=== PATIENT | male | born 1970 | race American Indian/Alaskan Native ===

== ENCOUNTER 2020-04-21 23:04 | Emergency (ER) | payer SELFPAY ==
[2020-04-21 23:11] VITALS: BP 147/92
[2020-04-22] MEDS ORDERED: IBUPROFEN 800 MG TAB PO ONE (00:15)
[2020-04-22] MEDS ORDERED: LIDOCAINE (1%) 10 MG/1 ML VIAL 20 ML MDV INFILTRATI ONE (00:19)
--- NOTE | 2020-04-22 00:22 | Emergency Department Report ---
ED General Adult HPI - General Chief complaint: Wound/Laceration Stated complaint: SPIDER BITE LEFT KNEE Time Seen by Provider: 04/21/20 23:30 Source: patient Mode of arrival: Ambulatory Limitations: No Limitations - History of Present Illness Initial comments: 49-year-old -[place] male patient with history of hypertension presents with complaints of insect bite to the left thigh and knee x2 weeks. Patient reports the thigh lesion has improved and there is no longer any pain, however the lesion on his knee is worsening and pain and swelling. He rates his current pain as a 10/10 in severity and describes it as throbbing. He denies any nu mbness/tingling/weakness in his limb, decreased range of motion of his knee, or fever/chills/sweats. Patient reports he believes a spider bit him, however he did not actually see any insect at the site of the lesion - Related Data Previous Rx's Medication Instructions Recorded Last Taken Type Acetaminophen/Codeine [Tylenol 1 tab PO Q8H PRN #8 tab 04/22/20 Unknown Rx /Codeine # 3 tab] Clindamycin [Clindamycin CAP] 300 mg PO Q6H 10 Days #40 capsule 04/22/20 Unknown Rx Ibuprofen [Motrin 800 MG tab] 800 mg PO Q8HR PRN #21 tablet 04/22/20 Unknown Rx Allergies Allergy/AdvReac Type Severity Reaction Status Date / Time Penicillins Allergy Itching Verified 04/21/20 23:17 ED Review of Systems ROS: Stated complaint: SPIDER BITE LEFT KNEE Other details as noted in HPI Constitutional: denies: chills, diaphoresis, fever, malaise, weakness Respiratory: denies: cough, SOB with exertion Gastrointestinal: denies: abdominal pain, nausea, vomiting, diarrhea, constipation Musculoskeletal: arthralgia Skin: denies: rash Neurological: denies: headache, weakness, numbness, paresthesias, abnormal gait ED Past Medical Hx - Past Medical History Previous Medical History?: Yes Hx Hypertension: Yes - Surgical History Past Surgical History?: No - Social History Smoking Status: Current Every Day Smoker Substance Use Type: None - Medications Home Medications: Home Medications Medication Instructions Recorded Confirmed Last Taken Type Acetaminophen/Codeine [Tylenol 1 tab PO Q8H PRN #8 tab 04/22/20 Unknown Rx /Codeine # 3 tab] Clindamycin [Clindamycin CAP] 300 mg PO Q6H 10 Days #40 capsule 04/22/20 Unknown Rx Ibuprofen [Motrin 800 MG tab] 800 mg PO Q8HR PRN #21 tablet 04/22/20 Unknown Rx ED Physical Exam - General Limitations: No Limitations General appearance: alert, in no apparent distress - Head Head exam: Present: atraumatic, normocephalic - Eye Eye exam: Present: normal appearance. Absent: scleral icterus - Respiratory Respiratory exam: Present: normal lung sounds bilaterally. Absent: respiratory distress - Cardiovascular Cardiovascular Exam: Present: regular rate, normal rhythm. Absent: systolic murmur, diastolic murmur, rubs, gallop - Extremities Exam Extremities exam: Present: full ROM, other (There is a 3 cm round abscess noted to the medial left knee with central fluctuance and surrounding erythema; full range of motion of the knee noted; normal sensation and perfusion of the leg and foot). Absent: joint swelling - Back Exam Back exam: Absent: CVA tenderness (R), CVA tenderness (L) - Neurological Exam Neurological exam: Present: alert, oriented X3 - Psychiatric Psychiatric exam: Present: normal affect, normal mood - Skin Skin exam: Present: warm, dry, intact, erythema, other (Dry healing lesion noted to left thigh without surrounding erythema or tenderness to palpation). Absent: rash ED Course Vital Signs 04/21/20 23:09 Temperature 99.3 F Pulse Rate 96 H Respiratory 16 Rate Blood Pressure 147/92 O2 Sat by Pulse 97 Oximetry - I & D Knee Type of Procedure: Simple Site: Medial left knee Blade Size: 11 I & D Procedure: betadine prep, sterile drapes applied, sterile dressing applied Progress: Patient in exercise using 6 cc of lidocaine 1% without epi. 11 blade used to incise area. Forceps used to probe. Moderate purulent drainage obtained from wound. Sample was sent for culture. Minimal bleeding occurred. Sterile dressing placed. Patient tolerated procedure well without any immediate complications. He has normal range of motion of the knee and perfusion of the leg and foot post procedure ED Medical Decision Making - Lab Data Result diagrams: 04/22/20 00:43 Lab Results 04/22/20 04/22/20 Range/Units 00:43 00:43 WBC 7.9 (4.5-11.0) K/mm3 RBC 4.38 (3.65-5.03) M/mm3 Hgb 14.0 (11.8-15.2) gm/dl Hct 41.2 (35.5-45.6) % MCV 94 (84-94) fl MCH 32 (28-32) pg MCHC 34 (32-34) % RDW 12.5 L (13.2-15.2) % Plt Count 268 (140-440) K/mm3 Lymph % (Auto) 27.7 (13.4-35.0) % [place] % (Auto) 8.3 H (0.0-7.3) % Eos % (Auto) 1.5 (0.0-4.3) % Baso % (Auto) 0.4 (0.0-1.8) % Lymph # (Auto) 2.2 (1.2-5.4) K/mm3 [place] # (Auto) 0.7 (0.0-0.8) K/mm3 Eos # (Auto) 0.1 (0.0-0.4) K/mm3 Baso # (Auto) 0.0 (0.0-0.1) K/mm3 Seg Neutrophils % 62.1 (40.0-70.0) % Seg Neutrophils # 4.9 (1.8-7.7) K/mm3 Sodium 141 (137-145) mmol/L Potassium 4.5 (3.6-5.0) mmol/L Chloride 100.1 (98-107) mmol/L Carbon Dioxide 25 (22-30) mmol/L Anion Gap 20 mmol/L BUN 17 (9-20) mg/dL Creatinine 1.2 (0.8-1.3) mg/dL Estimated GFR > 60 ml/min BUN/Creatinine Ratio 14 % Glucose 104 H (75-100) mg/dL Calcium 9.4 (8.4-10.2) mg/dL - Medical Decision Making 49-year-old -[place] male patient with history of hypertension presents with complaints of insect bite to the left thigh and knee x2 weeks. Patient reports the thigh lesion has improved and there is no longer any pain, however the lesion on his knee is worsening and pain and swelling. He rates his current pain as a 10/10 in severity and describes it as throbbing. He denies any numbness/tingling/weakness in his limb, decreased range of motion of his knee, or fever/chills/sweats. Patient reports he believes a spider bit him, however he did not actually see any insect at the site of the lesion. X-ray is normal. Incision and drainage performed. Patient tolerated procedure well. Wound culture sent. CBC is normal. Patient is afebrile and non- tachycardic. He is stable for discharge home. Discussed wound care and strict return precautions in detail with patient who verbalizes understanding. Patient to return to ED in 2 days for a wound recheck. Critical care attestation.: If time is entered above; I have spent that time in minutes in the direct care of this critically ill patient, excluding procedure time. ED Disposition Clinical Impression: Abscess of left knee, Cellulitis of knee, left Disposition: [id number] TO HOME OR SELFCARE Is pt being admited?: No Condition: Stable Instructions: Abscess Incision and Drainage (ED) Additional Instructions: Return to the emergency department in 2 days for wound recheck Prescriptions: Clindamycin [Clindamycin CAP] 300 mg PO Q6H 10 Days #40 capsule Ibuprofen [Motrin 800 MG tab] 800 mg PO Q8HR PRN #21 tablet PRN Reason: Pain, Moderate (4-6) Acetaminophen/Codeine [Tylenol /Codeine # 3 tab] 1 tab PO Q8H PRN #8 tab PRN Reason: Pain , Severe (7-10) Referrals: TRISTON ZELAYA MD [Primary Care Provider] - 3-5 Days
--- NOTE | 2020-04-22 00:42 | XRay Report ---
LEFT KNEE 3 VIEW INDICATION / CLINICAL INFORMATION: abscess over joint. COMPARISON: None available. FINDINGS: BONES/JOINT(S): No acute fracture or subluxation. No significant degenerative changes. SOFT TISSUES: No significant abnormality. No radiopaque foreign body or soft tissue gas. ADDITIONAL FINDINGS: None. Signer Name: Juan Padilla MD Signed: 04/22/2020 12:38 AM Workstation Name: [employer]
[2020-04-22] MEDS ORDERED: HYDROcodone/ACETAMINOPHEN 5-325 MG TAB PO ONE (00:57)
[2020-04-22 01:23] LABS: Basophils % (Auto) 0.4 % (0.0-1.8); Eosinophils # (Auto) 0.1 K/mm3 (0.0-0.4); Eosinophils % (Auto) 1.5 % (0.0-4.3); Hematocrit 41.2 % (35.5-45.6); Lymphocytes # (Auto) 2.2 K/mm3 (1.2-5.4); Lymphocytes % (Auto) 27.7 % (13.4-35.0); Mean Corpuscular HGB Conc 34 % (32-34); Mean Corpuscular Volume 94 fl (84-94); Monocytes # (Auto) 0.7 K/mm3 (0.0-0.8); Monocytes % (Auto) 8.3 % (0.0-7.3); Platelet Count 268 K/mm3 (140-440); Red Blood Count 4.38 M/mm3 (3.65-5.03); Red Cell Distribution Width 12.5 % (13.2-15.2)
[2020-04-22] MEDS ORDERED: CLINDAMYCIN 150 MG CAP PO ONE (01:40)
[2020-04-22 01:44] LABS: BUN/Creatinine Ratio 14; Blood Urea Nitrogen 17 mg/dL (9-20); Calcium 9.4 mg/dL (8.4-10.2); Hemolysis Index 5
== END 2020-04-22 02:15 | disposition home or self-care (01) ==
LOC: ED 23:04
DX: L02.416 Cutaneous abscess of left lower limb (principal); L03.116 Cellulitis of left lower limb; I10 Essential (primary) hypertension; F17.200 Nicotine dependence, unspecified, uncomplicated; Z79.899 Other long term (current) drug therapy; Z88.0 Allergy status to penicillin; W57.XXXA Bitten or stung by nonvenomous insect and other nonvenomous arthropods, initial encounter; Y93.89 Activity, other specified; Y92.89 Other specified places as the place of occurrence of the external cause; Y99.8 Other external cause status
CPT/HCPCS: 36415; 80048; 85025; 87076; 87116; 87186; 99283